=== PATIENT | female | born 1940 | race Caucasian/White ===

== ENCOUNTER 2024-07-26 06:13 | Day surgery (SDC) | payer MEDICARE, BC ==
[~2024-07-26] VITALS: Ht 152.4 cm; Wt 88.6 kg
[~2024-07-26 06:13] MED LIST: ACET-2971 PO; ALPR0.5T10 PO; AMLO2.5T2 PO; CYCLOBENZAPRINE; DESL5TAB PO; FAMO40TA7 PO; MESA1.2T PO; NORCO; OMEP-84 PO; POTA-192 PO; TRAZODONE; TRIA1TAB5 PO; ZOLOFT; [UNRECOGNIZED DRUG - OTHER]; [UNRECOGNIZED DRUG - REMARK]
[2024-07-26 06:44] VITALS: BP 147/87; PULSE 73; RESP 16; TEMP 98.4
[2024-07-26] MEDS ORDERED: propofol inj 20 ML IV ONE (08:11)
[2024-07-26 08:18] VITALS: BP 125/81; PULSE 69; RESP 18; O2SAT 99
[2024-07-26 08:28] VITALS: BP_SYST 131; BP_SYST 143; BP_DIAS 78; BP_DIAS 83; PULSE 70; PULSE 75; RESP 18; RESP 20; O2SAT 75; O2SAT 97
[2024-07-26 08:38] VITALS: BP 134/79; PULSE 74; RESP 20; O2SAT 92
[2024-07-26 08:50] VITALS: BP 122/80; PULSE 78; RESP 14; O2SAT 92
[2024-07-26 09:00] VITALS: BP 111/72; PULSE 72; RESP 21; O2SAT 93
== END 2024-07-26 09:07 | disposition home or self-care (01) ==
LOC: PRE-OP 06:13
PROVIDERS: ATTEND Internal Medicine Gastroenterology
DX: K92.1 Melena (principal); D12.4 Benign neoplasm of descending colon; K64.1 Second degree hemorrhoids; K57.30 Diverticulosis of large intestine without perforation or abscess without bleeding; I10 Essential (primary) hypertension; G47.33 Obstructive sleep apnea (adult) (pediatric); K21.9 Gastro-esophageal reflux disease without esophagitis; Z85.038 Personal history of other malignant neoplasm of large intestine; Z87.891 Personal history of nicotine dependence; Z98.890 Other specified postprocedural states; Z88.2 Allergy status to sulfonamides; Z79.899 Other long term (current) drug therapy
CPT/HCPCS: 45385; C1889; J2704; J7030; Z7512; 88305